=== PATIENT | male | born 1965 | race Caucasian/White ===

== ENCOUNTER 2017-09-14 21:10 | Inpatient (IN) | payer OTHER ==
[2017-09-15] MEDS: ASPIRIN 325 MG TAB PO (01:44)
[2017-09-15] MEDS: LIDOCAINE/MYLANTA 40 ML BTL PO (01:44)
[2017-09-15] MEDS: SOD CHLORIDE 0.9% 1,000 ML IV ×2 (01:44→02:58)
[2017-09-15 01:58] LABS: ADD MAN DIFF? NO
[2017-09-15 02:00] LABS: BASOPHILS % 0.5 % (0.0-2.0); EOSINOPHILS # 0.3 10^3/ul (0.0-0.5); EOSINOPHILS % 3.8 % (0.0-7.0); HEMATOCRIT 39.8 % (42.0-52.0); HEMOGLOBIN 13.5 g/dl (14.0-18.0); LYMPHOCYTES % 38.9 % (15.0-51.0); MEAN CORPUSCULAR HEMOGLOBIN 30.2 pg (29.0-33.0); MEAN CORPUSCULAR HGB CONC 33.9 g/dl (32.0-37.0); MEAN PLATELET VOLUME 9.9 fl (7.4-10.4); MONOCYTE # 0.8 10^3/ul (0.3-0.9); MONOCYTES % 10.4 % (0.0-11.0); NEUTROPHIL # 3.6 10^3/ul (1.6-7.5); PLATELET COUNT 308 10^3/UL (140-415); RED BLOOD COUNT 4.47 10^6/ul (4.70-6.10); RED CELL DISTRIBUTION WIDTH 12.5 % (11.5-14.5)
[2017-09-15 02:00] LABS: WHITE BLOOD COUNT 7.8 10^3/ul (4.8-10.8)
[2017-09-15 02:06] LABS: ANION GAP 10 (8-16); BLOOD UREA NITROGEN 16 mg/dl (7-20); CALCIUM 10.8 mg/dl (8.4-10.2); CARBON DIOXIDE 32 mmol/L (21-31); CHLORIDE 106 mmol/L (97-110); CREATININE 0.83 mg/dl (0.61-1.24); GLUCOSE 98 mg/dl (70-220); POTASSIUM 3.6 mmol/L (3.5-5.1); SODIUM 144 mmol/L (135-144)
[2017-09-15 02:18] LABS: B-TYPE NATRIURETIC PEPTIDE 117 PG/ML (0-125); TROPONIN-I < 0.012 ng/ml (0.00-0.12)
[2017-09-15] MEDS: MECLIZINE 12.5 MG TAB PO (03:40)
[2017-09-15] MEDS: NITROGLYCERIN (SL) 0.4 MG TAB SL ×2 (04:00→10:59)
[2017-09-15] MEDS ORDERED: morphine 2 MG INJ IV (05:30)
[2017-09-15] MEDS ORDERED: NACL 0.9% 3 ML SYG IV (05:30)
[2017-09-15] MEDS ORDERED: ALBUTEROL/IPRATROPIUM (NEB) 3 ML AMP HHN (05:30)
[2017-09-15] MEDS ORDERED: ONDANSETRON 4 MG INJ IV (05:30)
[2017-09-15 07:27] LABS: ADD MAN DIFF? NO
[2017-09-15 07:29] LABS: BASOPHILS % 0.6 % (0.0-2.0); EOSINOPHILS # 0.3 10^3/ul (0.0-0.5); EOSINOPHILS % 3.7 % (0.0-7.0); HEMATOCRIT 35.7 % (42.0-52.0); HEMOGLOBIN 12.1 g/dl (14.0-18.0); LYMPHOCYTES % 42.5 % (15.0-51.0); MEAN CORPUSCULAR HEMOGLOBIN 30.3 pg (29.0-33.0); MEAN CORPUSCULAR HGB CONC 33.9 g/dl (32.0-37.0); MEAN CORPUSCULAR VOLUME 89.3 fl (82.0-101.0); MEAN PLATELET VOLUME 9.6 fl (7.4-10.4); MONOCYTE # 0.7 10^3/ul (0.3-0.9); MONOCYTES % 10.6 % (0.0-11.0); NEUTROPHIL # 2.9 10^3/ul (1.6-7.5); NEUTROPHILS % 42.2 % (39.0-77.0); PLATELET COUNT 261 10^3/UL (140-415); RED CELL DISTRIBUTION WIDTH 12.6 % (11.5-14.5)
[2017-09-15 07:38] LABS: HEMOGLOBIN A1C 5.3 % (0-5.9)
[2017-09-15 07:54] LABS: CREATINE KINASE 64 IU/L (23-200)
[2017-09-15 07:55] LABS: ALANINE AMINOTRANSFERASE 40 IU/L (13-69); ALBUMIN 3.5 g/dl (3.3-4.9); ALBUMIN/GLOBULIN RATIO 1.25; ALKALINE PHOSPHATASE 101 IU/L (42-121); ANION GAP 14 (8-16); ASPARTATE AMINO TRANSFERASE 23 IU/L (15-46); BILIRUBIN,INDIRECT 0.3 mg/dl (0-1.1); BILIRUBIN,TOTAL 0.3 mg/dl (0.2-1.3); BLOOD UREA NITROGEN 14 mg/dl (7-20); CALCIUM 9.6 mg/dl (8.4-10.2); CARBON DIOXIDE 27 mmol/L (21-31); CHLORIDE 108 mmol/L (97-110); CHOL/HDL RATIO 4.6 RATIO; CHOLESTEROL 150 mg/dl (100-200); CREATININE 0.83 mg/dl (0.61-1.24); GLUCOSE 99 mg/dl (70-220); HDL CHOLESTEROL 32 mg/dl (28-71); LDL CHOLESTEROL,CALCULATED 84 mg/dl; POTASSIUM 4.2 mmol/L (3.5-5.1); SODIUM 145 mmol/L (135-144); TOTAL PROTEIN 6.3 g/dl (6.1-8.1); TRIGLYCERIDES 172 mg/dl (0-149)
[2017-09-15 08:03] LABS: CK INDEX 0.5
[2017-09-15 08:15] LABS: CK-MB 0.35 ng/ml (0.0-2.4); TROPONIN-I < 0.012 ng/ml (0.00-0.12)
[2017-09-15] MEDS: NEBIVOLOL 5 MG TAB PO (09:00)
[2017-09-15] MEDS: ASPIRIN 81 MG TAB PO (09:51)
[2017-09-15] MEDS: ENOXAPARIN 40 MG/0.4 ML SYG SC (09:52)
[2017-09-15] MEDS: LOSARTAN 50 MG TAB PO (13:44)
[2017-09-15 17:13] LABS: TROPONIN-I < 0.012 ng/ml (0.00-0.12)
[2017-09-15] MEDS: ATORVASTATIN 20 MG TAB PO (21:34)
[2017-09-15] MEDS: NICOTINE (21 MG/24 HR) PATCH TRANSDERM (21:45)
[2017-09-16 01:21] LABS: TROPONIN-I < 0.012 ng/ml (0.00-0.12)
[2017-09-16 07:42] LABS: ADD MAN DIFF? NO
[2017-09-16 07:49] LABS: WHITE BLOOD COUNT 6.2 10^3/ul (4.8-10.8)
[2017-09-16 07:49] LABS: BASOPHILS % 0.6 % (0.0-2.0); EOSINOPHILS # 0.3 10^3/ul (0.0-0.5); EOSINOPHILS % 4.2 % (0.0-7.0); HEMATOCRIT 38.4 % (42.0-52.0); LYMPHOCYTES # 2.4 10^3/ul (0.8-2.9); LYMPHOCYTES % 38.9 % (15.0-51.0); MEAN CORPUSCULAR HGB CONC 33.9 g/dl (32.0-37.0); MEAN CORPUSCULAR VOLUME 88.7 fl (82.0-101.0); MEAN PLATELET VOLUME 9.9 fl (7.4-10.4); MONOCYTE # 0.6 10^3/ul (0.3-0.9); NEUTROPHIL # 2.9 10^3/ul (1.6-7.5); PLATELET COUNT 280 10^3/UL (140-415); RED BLOOD COUNT 4.33 10^6/ul (4.70-6.10); RED CELL DISTRIBUTION WIDTH 12.3 % (11.5-14.5)
[2017-09-16 08:05] LABS: ANION GAP 11 (8-16); BLOOD UREA NITROGEN 11 mg/dl (7-20); CALCIUM 9.7 mg/dl (8.4-10.2); CARBON DIOXIDE 27 mmol/L (21-31); CHLORIDE 111 mmol/L (97-110); CREATININE 0.65 mg/dl (0.61-1.24); GLUCOSE 98 mg/dl (70-220); MAGNESIUM 2.1 mg/dl (1.7-2.5); PHOSPHORUS 2.9 mg/dl (2.5-4.9); POTASSIUM 3.7 mmol/L (3.5-5.1); SODIUM 145 mmol/L (135-144)
[2017-09-16] MEDS: ASPIRIN 81 MG TAB PO (08:22)
[2017-09-16] MEDS: NICOTINE (21 MG/24 HR) PATCH TRANSDERM (08:22)
[2017-09-16] MEDS: LOSARTAN 50 MG TAB PO (08:23)
[2017-09-16] MEDS: ENOXAPARIN 40 MG/0.4 ML SYG SC (08:28)
[2017-09-16 08:29] LABS: CHOL/HDL RATIO 5.8 RATIO; HDL CHOLESTEROL 28 mg/dl (28-71); LDL CHOLESTEROL,CALCULATED 87 mg/dl; TRIGLYCERIDES 252 mg/dl (0-149)
[2017-09-16 08:29] LABS: CHOLESTEROL 165 mg/dl (100-200)
[2017-09-16] MEDS: REGADENOSON 0.4 MG/5 ML SYG (12:10)
[2017-09-16] MEDS: hydrALAzine 20 MG INJ IV (15:56)
[2017-09-16] MEDS: ATORVASTATIN 20 MG TAB PO (21:56)
[2017-09-17] MEDS: LOSARTAN 50 MG TAB PO (08:50)
[2017-09-17] MEDS: ASPIRIN 81 MG TAB PO (08:50)
[2017-09-17] MEDS: NICOTINE (21 MG/24 HR) PATCH TRANSDERM (08:51)
[2017-09-17] MEDS: ACETAMINOPHEN 325 MG TAB PO (08:51)
[2017-09-17] MEDS: ENOXAPARIN 40 MG/0.4 ML SYG SC (08:52)
== END 2017-09-17 11:59 | disposition home or self-care (01) | DRG 313 ==
LOC: E/R 21:10 → MS4 09-15 03:56
DX: R07.89 Other chest pain (principal); I10 Essential (primary) hypertension; F17.210 Nicotine dependence, cigarettes, uncomplicated; E78.1 Pure hyperglyceridemia; S92.912A Unspecified fracture of left toe(s), initial encounter for closed fracture; H83.09 Labyrinthitis, unspecified ear; W20.8XXA Other cause of strike by thrown, projected or falling object, initial encounter; Y93.9 Activity, unspecified; Y92.9 Unspecified place or not applicable; Y99.8 Other external cause status; Z79.82 Long term (current) use of aspirin
CPT/HCPCS: 36415; 71045; 73630-LT; 78452; 80048; 80053; 80061; 82550; 82553; 83036; 83735; 83880; 84100; 84443; 84484; 85025; 93005; 93017; 93306; 93970; 99285-25